=== PATIENT | male | born 1985 | race Caucasian/White ===

== ENCOUNTER 2016-07-16 13:33 | Emergency (ER) | payer BC, OTHER ==
[2016-07-16 13:46] VITALS: O2SAT 98
[2016-07-16] MEDS ORDERED: TORAdol 30 mg Injection IM ONE (13:56)
[2016-07-16] MEDS ORDERED: Adacel Vial IM ONE ×2 (13:56→13:59)
[2016-07-16] MEDS ORDERED: TORAdol 30 mg Injection ONE (13:58)
--- NOTE | 2016-07-16 14:02 | ERPHSYRPT ---
- History of Present Illness Time Seen by Provider: 07/16/16 13:55 Source: patient Exam Limitations: no limitations Patient Subjective Stated Complaint: hit a wall with right hand last night Triage Nursing Assessment: right hand very swollen. is able to move fingers slightly Physician History: 31-year-old white male arrives with complaint of pain and swelling in his right hand since yesterday evening at 11:00. Patient states he became angry and struck a wall last night he has pain and swelling in his right hand pain with moving of his fingers of his right hand. He denies any other complaints. Past medical history patient denies. Past surgical history patient denies. Social history includes occasional alcohol use tobacco use patient denies illicit drug use. Occurred: yesterday (last evening 11:00) Method of Injury: direct blow (punched a wall) Quality: constant Severity of Pain-Max: moderate Severity of Pain-Current: moderate Extremities Pain Location: hand: right Modifying Factors: Worsens With: cold therapy, immobilization, movement, pain medication, other Associated Symptoms: No back pain, No chills, No chest discomfort, No chest pain , No dyspnea, No fever, No jaw pain, No nausea, No neck pain, No sweating, No short of breath, No vomiting Allergies/Adverse Reactions: No Known Drug Allergies Allergy (Unverified 07/16/16 13:46) Hx Tetanus, Diphtheria Vaccination/Date Given: No Hx Influenza Vaccination/Date Given: No Hx Pneumococcal Vaccination/Date Given: No - Review of Systems Constitutional: No Fever, No Chills Eyes: No Symptoms Ears, Nose, & Throat: No Symptoms Respiratory: No Cough, No Dyspnea Cardiac: No Chest Pain, No Edema, No Syncope Abdominal/Gastrointestinal: No Abdominal Pain, No Nausea, No Vomiting, No Diarrhea Genitourinary Symptoms: No Dysuria Musculoskeletal: Other (pain and swelling right hand) Skin: No Rash Neurological: No Dizziness, No Focal Weakness, No Sensory Changes Psychological: No Symptoms Endocrine: No Symptoms All Other Systems: Reviewed and Negative - Past Medical History Pertinent Past Medical History: No - Past Surgical History Past Surgical History: No - Social History Smoking Status: Current every day smoker How long have you smoked: 10 Exposure to second hand smoke: No Drug Use: none Patient Lives Alone: No - Nursing Vital Signs Nursing Vital Signs: Initial Vital Signs Temperature 98.6 F Temperature Source Oral Pulse Rate 79 Respiratory Rate 16 Blood Pressure [] 122/71 Pain Intensity 6 - Physical Exam General Appearance: mild distress Eyes, Ears, Nose, Throat Exam: moist mucous membranes Neck Exam: non-tender, supple Cardiovascular/Respiratory Exam: chest non-tender, normal breath sounds, regular rate/rhythm, no respiratory distress Abdominal Exam: non-tender, No guarding Back Exam: normal inspection, No vertebral tenderness Shoulder Exam: normal inspection, non-tender, no evidence of injury, normal ROM Elbow/Forearm Exam: normal inspection, non-tender, no evidence of injury, normal ROM Wrist Exam: normal inspection, non-tender, no evidence of injury, normal ROM Hand Exam: No normal inspection (right hand with moderate edema dorsally tender with palpation dorsally, decreased range of motion right hand and fingers secondary to pain, good capillary refill to all fingers sensation intact to all fingers radial and ulnar pulses intact 2 over 4) Neuro/Tendon Exam: normal sensation, normal motor functions Mental Status Exam: alert, oriented x 3, cooperative Skin Exam: normal color, warm, dry SpO2 Interpretation: normal (98%) SpO2: 98 Oxygen Delivery: Room Air - Course Nursing assessment & vital signs reviewed: Yes - Radiology Exams Right Hand X-ray Interpretation: Teleradiologist Report (x-ray right hand: Questionable fracture in the region of the fifth carpal metacarpal joint) Ordered Tests: Active Orders 24 hr Category Date Time Status Splint STAT Care 07/16/16 15:00 Active HAND (MINIMUM 3 VIEWS) Stat Exams 07/16/16 13:55 Taken Medication Summary Discontinued Medications Generic Name Dose Route Start Last Admin Trade Name Freq PRN Reason Stop Dose Admin Diphtheria/Tetanus/Acell Pertussis 0.5 ml 07/16/16 13:56 07/16/16 14:04 Adacel Vial IM 07/16/16 13:57 0.5 ml .ONCE ONE Administration Diphtheria/Tetanus/Acell Pertussis Confirm 07/16/16 13:59 Adacel Vial Administered 07/16/16 14:00 Dose 0.5 ml IM .STK-MED ONE Ketorolac Tromethamine 60 mg 07/16/16 13:56 07/16/16 14:04 Toradol 30 Mg Injection IM 07/16/16 13:57 60 mg STAT ONE Administration Ketorolac Tromethamine Confirm 07/16/16 13:58 Toradol 30 Mg Injection Administered 07/16/16 13:59 Dose 60 mg .ROUTE .STK[facility] ONE - Progress Progress: improved Progress Note: 07/16/16 14:01 This is a 31-year-old white male he arrives with complaints of pain and swelling in his right hand since punching a wall last night. Patient has full range of motion to all fingers good capillary refill to all fingers tenderness with palpation to the right dorsal hand as well as swelling to the right dorsal hand Will go ahead and obtain x-ray of his right hand. Will give patient Toradol for pain. 07/16/16 15:01 Patient's x-ray right hand shows an irregularity of the fifth carpometacarpal area on AP and lateral views and there may be a mildly displaced fracture of the base of the fifth carpal her trapezial there is an iron carrier he ossicle adjacent to the tip of the ulnar styloid and ossicle is probably present between the bases of the third and fourth metacarpals Impression question question fracture in the region of the fifth carpometacarpal joint . Case is discussed with Dr. Denton who was on-call for [facility] he stated that the patient could be splinted that he could follow-up with [facility] at 8 AM at [address] Will go ahead and splint patient up And have him follow-up with [facility] at 8 AM tomorrow 07/16/16 15:11 Right Short arm ulnar gutter splint is placed by the patient's nurse with good placement patient neurovascular intact. - Departure Time of Disposition: 15:04 Departure Disposition: Home Clinical Impression: Fracture of right hand Qualifiers: Encounter type: initial encounter Fracture type: closed Qualified Code(s): S62.91XA - Unspecified fracture of right wrist and hand, initial encounter for closed fracture Condition: Fair Critical Care Time: No Referrals: DOCTOR,NO FAMILY [Primary Care Provider] - Instructions: Hand Fracture Additional Instructions: Return home. Ice and elevate your right hand 24-48 hours. Advil 2-3 tablets orally every 6 hours as needed for pain. Kake 5/325 #12 one orally every 4-6 hours as needed for pain. Follow-up with [facility] [address] [place], [place] at 8 AM tomorrow morning. Phone [phone] Return for acute distress or for severe symptoms Prescriptions: Hydrocodone/Acetaminophen [Kake 5-325 Tablet] 1 tab PO Q4-6HPRN PRN #12 tablet PRN Reason: Pain
[2016-07-16 15:04] VITALS: BP 122/71; PULSE 79
--- NOTE | 2016-07-16 20:56 | XRAY ---
Indication: Pain following punching injury. Comparison: None 3 views of the right hand demonstrates ossification at the base of the fifth metacarpal with marginal irregularity and soft tissue swelling, possible fracture and could be evaluated with CT if clinically warranted. Tiny well circumscribed ossification at the base of the fourth metacarpal and ulnar styloid favor old fractures. Comment: Preliminary interpretation was made by [facility]. No discrepancy.
== END 2016-07-16 15:20 | disposition home or self-care (01) ==
LOC: ED 13:33
PROC: 2W3EX1Z Immobilization of Right Hand using Splint (ICD-10-PCS; principal; 2016-07-16)
DX: S62.91XA Unspecified fracture of right hand, initial encounter for closed fracture (principal); W22.01XA Walked into wall, initial encounter
CPT/HCPCS: 29126; 73130; 90471; 90715; 96372; 99283; 99284; J1885